=== PATIENT | male | born 1975 | race Caucasian/White ===

== ENCOUNTER 2017-03-03 20:57 | Emergency (ER) | payer OTHER ==
[~2017-03-03] VITALS: Ht 177.8 cm; Wt 90.9 kg
[2017-03-03 21:04] VITALS: TEMP 98.6
[2017-03-03] MEDS ORDERED: PROAIR HFA0.09 MG/AC IH (21:06)
[2017-03-03] MEDS ORDERED: PREDNISONE20 MG PO (22:14)
[2017-03-03 22:25] VITALS: BP 141/81; PULSE 100
== END 2017-03-03 22:28 | disposition home or self-care (01) ==
LOC: COL.ER 20:57
DX: J45.901 Unspecified asthma with (acute) exacerbation (principal)
CPT/HCPCS: J7512